=== PATIENT | female | born 1985 | race African-American/Black ===

== ENCOUNTER 2020-02-06 12:09 | Emergency (ER) | payer OTHER ==
[~2020-02-06] VITALS: Ht 165.1 cm; Wt 108.0 kg
[2020-02-06] MEDS ORDERED: MORPHINE SULFATE 4 MG/ML CPJ (NOT FOR IM USE) IV ONE ×2 (12:30→14:15)
[2020-02-06] MEDS ORDERED: PROPOFOL 200MG/20ML VIAL IV ONE (16:30)
[2020-02-06 19:07] VITALS: BP 134/84
== END 2020-02-06 19:10 | disposition home or self-care (01) ==
LOC: ER 13:18
DX: M24.411 Recurrent dislocation, right shoulder (principal); Z98.890 Other specified postprocedural states
CPT/HCPCS: 23650; 73030; 96374; 96375; 96376; 99152; 99285; J2270; J2704; L3670